=== PATIENT | female | born 1970 | race Caucasian/White ===

== ENCOUNTER 2023-02-22 06:16 | Day surgery (SDC) | payer OTHER ==
[2023-02-17 12:35] VITALS: BMI 59.3
--- NOTE | 2023-02-21 19:39 | P.HPOB ---
History of Present Illness H&P Date: 02/21/23 Chief Complaint: Endometrial thickening This is a 52 y.o. female, 0 who presents for dilatation and curettage with hysteroscopy due to thickened endometrium. Her last menstrual period was 2018. She had a pelvic ultrasound performed for pelvic pain and endometrium m easured 10 mm. Right ovary appeared normal and left ovary was previously removed. Uterus measured 8.7 x 5 x 4.4 cm. OB Hx: G0. 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 Review of Systems Constitutional: Denies chills, Denies fever Eyes: denies blurred vision, denies pain Ears, nose, mouth and throat: Denies headache, Denies sore throat Cardiovascular: Denies chest pain, Denies shortness of breath Respiratory: Denies cough Gastrointestinal: Reports heartburn, Denies abdominal pain, Denies diarrhea, Denies nausea, Denies vomiting Genitourinary: Denies dysuria, Denies hematuria Menstruation: Reports amenorrhea, Reports postmenopausal Musculoskeletal: bilateral: ankle swelling Integumentary: Denies pruritus, Denies rash Neurological: Reports numbness (feet & legs) Psychiatric: Reports irritability, Denies anxiety, Denies depression Past Medical History Past Medical History: Diabetes Mellitus, GERD/Reflux, Hyperlipidemia, Hypertension, Thyroid Disorder Additional Past Medical History / Comment(s): HEART MURMUR. BLE EDEMA. THICKENED UTERINE LINING History of Any Multi-Drug Resistant Organisms: None Reported Past Surgical History: Bariatric Surgery, Cholecystectomy Additional Past Surgical History / Comment(s): GASTRIC BYPASS. Laparoscopy with left salpingooophorectomy, D&C, right ovarian cystectomy. EGD Past Anesthesia/Blood Transfusion Reactions: No Reported Reaction Past Psychological History: No Psychological Hx Reported Smoking Status: Current some day smoker Past Alcohol Use History: Rare Past Drug Use History: None Reported - Past Family History Mother Family Medical History: Cancer Medications and Allergies Home Medications Medication Instructions Recorded Confirmed Type Acetaminophen/Diphenhydramine 2 each PO HS 02/17/23 02/22/23 History [Tylenol Pm Ex-Strength Caplet] Aspirin EC [Ecotrin Low Dose] 81 mg PO DAILY 02/17/23 02/22/23 History Atorvastatin [Lipitor] 80 mg PO DAILY 02/17/23 02/22/23 History Baclofen 10 mg PO HS 02/17/23 02/22/23 History Dulaglutide [Trulicity] 4.5 mg SQ SA 02/17/23 02/22/23 History INSULIN LISPRO (humaLOG) [humaLOG] 12 units SQ TID-W/MEALS 02/17/23 02/22/23 History Insulin Degludec [Tresiba] 45 units SQ DAILY 02/17/23 02/22/23 History Levothyroxine Sodium [Synthroid] 50 mcg PO DAILY 02/17/23 02/22/23 History Levothyroxine Sodium [Synthroid] 200 mcg PO DAILY 02/17/23 02/22/23 History Ligaplex 1 tab PO DAILY 02/17/23 02/22/23 History Losartan Potassium 100 mg PO DAILY 02/17/23 02/22/23 History Magnesium Oxide [Mag-Ox] 400 mg PO DAILY 02/17/23 02/22/23 History Pantoprazole [Protonix] 40 mg PO DAILY 02/17/23 02/22/23 History Phentermine HCl 37.5 mg PO AC-BRKFST 02/17/23 02/22/23 History Sucralfate [Carafate] 1 gm PO TID 02/17/23 02/22/23 History hydroCHLOROthiazide 12.5 mg PO DAILY 02/17/23 02/22/23 History sitaGLIPtin PHOS/metFORMIN HCL 1 tab PO DAILY 02/17/23 02/22/23 History [Janumet Xr 100-1,000 mg Tablet] Allergies Allergy/AdvReac Type Severity Reaction Status Date / Time Penicillins Allergy Swelling Verified 02/22/23 07:11 Sulfa (Sulfonamide Allergy Swelling Verified 02/22/23 07:11 Antibiotics) Exam Osteopathic Statement: *. No significant issues noted on an osteopathic structural exam other than those noted in the History and Physical/Consult. Gen: Obese female in no acute distress HEENT: within normal limits Heart: regular rate and rhythm Lungs: clear to auscultation bilaterally Abdomen: soft, non-tender Pelvic: uterus sl. enlarged, non-tender, left adnexa mildly tender, no adnexal masses or tenderness Extremites: mild edema Assessment and Plan (1) Endometrial thickening on ultrasound Current Visit: No Status: Acute Code(s): R93.89 - ABNORMAL FINDINGS ON DX IMAGING OF OTH BODY STRUCTURES SNOMED Code(s): 132174960 Plan: Proceed with dilatation and curettage with hysteroscopy. I have discussed the risks, benefits, and alternative therapies for the above- mentioned procedure and for both sedation/anesthesia as well as necessary blood products administration, if indicated, as they pertain to this patient. The patient has indicated her understanding and acceptance of the risks and procedures discussed.
[~2023-02-22 06:16] MED LIST: Pre Op ABX Message 1 EACH MISC MISCELLANE ONE
[2023-02-22] MEDS ORDERED: LIDOCAINE 1% (10MG/ML) FOR IV START INTRADERMA PRN (06:38)
[2023-02-22] MEDS ORDERED: LACTATED RINGERS 1,000 ML IV SCH (06:38)
[2023-02-22] MEDS ORDERED: ONDANSETRON 4 MG/2 ML VIAL IVP ONE (06:38)
[2023-02-22] MEDS ORDERED: DEXAMETHASONE SOD PHOSPHATE 4 MG/ML 1 ML VIAL IV ONE (06:38)
[2023-02-22] MEDS ORDERED: LACTATED RINGERS 1,000 ML IV ONE (06:44)
[2023-02-22] MEDS ORDERED: HYDROmorphone 0.5 MG/0.5 ML SYRINGE IVP PRN (07:00)
[2023-02-22] MEDS ORDERED: MIDAZOLAM 2 MG/2 ML VIAL IV PRN (07:00)
[2023-02-22 07:01] LABS: Glucose,Whole Blood 101 mg/dL (70-110)
[2023-02-22 07:06] VITALS: RESP 16
[2023-02-22] MEDS ORDERED: LIDOCAINE 1% INJ 10MG/ML (20 ML MDV) ONE (07:25)
[2023-02-22] MEDS ORDERED: MIDAZOLAM 2 MG/2 ML VIAL ONE (07:25)
[2023-02-22] MEDS ORDERED: SUCCINYLCHOLINE CHLORIDE 200 MG/10 ML VIAL IV ONE (07:25)
[2023-02-22] MEDS ORDERED: PROPOFOL 10 MG/ML 20 ML VIAL IV ONE (07:25)
[2023-02-22] MEDS ORDERED: fentaNYL (PF) 50 MCG/ML 2 ML AMP ONE (07:25)
--- NOTE | 2023-02-22 08:09 | P.OP ---
Date of Procedure: 02/22/23 Preoperative Diagnosis: Endometrial thickening on ultrasound Postoperative Diagnosis: Same Procedure(s) Performed: Dilation and curettage with hysteroscopy Anesthesia: ANISHA Surgeon: Ivana Johnson Estimated Blood Loss (ml): 10 Pathology: other (Endometrial curettings) Condition: stable Disposition: same day Indications for Procedure: This is a 52 y.o. female, 0 who presents for dilatation and curettage with hysteroscopy due to thickened endometrium. Her last menstrual period was 2018. She had a pelvic ultrasound performed for pelvic pain and endometrium measured 10 mm. Right ovary appeared normal and left ovary was previously removed. Uterus measured 8.7 x 5 x 4.4 cm. Operative Findings: Uterus is sounded to 8-1/2 cm. Upon hysteroscopy, dyssynchronous endometrial pattern is noted. No specific polyps or fibroids are visualized. Neither tubal ostia are completely visualized. Uterus is anteverted with no adnexal masses palpated Description of Procedure: The patient is taken the operative room and she is placed in the dorsal lithotomy position. She is prepped and draped in the normal sterile fashion. Her bladder is drained with a catheter. Examination is performed under anesthesia. Uterus is found to be anteverted with no adnexal masses palpated. Next a weighted speculum was placed in the patient's vagina and she is placed in slight Trendelenburg position. A right angle retractor was used to visualize the cervix and the anterior lip of the cervix was grasped with a Allis clamp. The cervix is slightly dilated with a Umaña dilator and then uterus is sounded to 8-1/2 cm. Cervix is then gently dilated with Umaña dilators until a hysteroscope could be passed. Hysteroscopy is performed using saline. A relatively dyssynchronous endometrial pattern was noted. See the above-noted findings. A polyp forceps was introduced with minimal tissue obtained. Next a medium-size sharp curet was introduced and sharp curettage was performed until a gritty texture was noted. A minimal amount of tissue is obtained. Next the specimen is removed from the field. The Allis clamp was removed from the anterior lip of the cervix. No active bleeding is noted. All instruments are removed from the vagina. All sponge counts are correct. The patient is then taken to recovery room in stable condition
[2023-02-22 08:45] VITALS: TEMP 97
[2023-02-22 10:00] VITALS: BP 137/80; PULSE 72
== END 2023-02-22 10:16 | disposition home or self-care (01) ==
LOC: OR 06:16
PROVIDERS: ATTEND Obstetrics & Gynecology
DX: N84.0 Polyp of corpus uteri (principal); E11.9 Type 2 diabetes mellitus without complications; K21.9 Gastro-esophageal reflux disease without esophagitis; I10 Essential (primary) hypertension; E78.5 Hyperlipidemia, unspecified; E07.9 Disorder of thyroid, unspecified; F10.90 Alcohol use, unspecified, uncomplicated; F17.210 Nicotine dependence, cigarettes, uncomplicated; G47.33 Obstructive sleep apnea (adult) (pediatric); E66.01 Morbid (severe) obesity due to excess calories; Z90.49 Acquired absence of other specified parts of digestive tract; Z98.84 Bariatric surgery status; Z98.890 Other specified postprocedural states; Z90.721 Acquired absence of ovaries, unilateral; Z80.9 Family history of malignant neoplasm, unspecified; Z79.82 Long term (current) use of aspirin; Z79.4 Long term (current) use of insulin; Z79.890 Hormone replacement therapy; Z79.84 Long term (current) use of oral hypoglycemic drugs; Z79.899 Other long term (current) drug therapy; Z88.0 Allergy status to penicillin; Z88.2 Allergy status to sulfonamides; Z68.44 Body mass index [BMI] 60.0-69.9, adult
CPT/HCPCS: 58558; 81025; 88305; J2250; J0330; J1100; J2405; J2001; J3010; J2704

== ENCOUNTER 2024-03-16 06:11 | Day surgery (SDC) | payer OTHER ==
[2024-03-14 09:30] VITALS: BMI 60.2
[~2024-03-16 06:11] MED LIST changes: +LACTATED RINGERS 1,000 ML IV SCH; -Pre Op ABX Message 1 EACH MISC MISCELLANE ONE
[2024-03-16 06:51] VITALS: TEMP 99
[2024-03-16 07:00] LABS: Glucose,Whole Blood 144 mg/dL (70-110)
[2024-03-16] MEDS: SODIUM CHLORIDE 0.9% 1,000 ML IV ONE (07:01)
[2024-03-16] MEDS ORDERED: MIDAZOLAM 2 MG/2 ML VIAL ONE (07:14)
[2024-03-16] MEDS ORDERED: ONDANSETRON 4 MG/2 ML VIAL ONE (07:14)
[2024-03-16] MEDS ORDERED: GLUCAGON 1 MG/ML VIAL ONE (07:14)
[2024-03-16] MEDS ORDERED: PROPOFOL 10 MG/ML 20 ML VIAL IV ONE (07:14)
--- NOTE | 2024-03-16 07:42 | P.PCN ---
Date of Procedure: 03/16/24 Procedure(s) Performed: Brief history: Patient is a pleasant 53-year-old white female scheduled for an elective upper endoscopy as well as colonoscopy as a part of evaluation of GERD and screening for colon cancer Procedure performed: Esophagogastroduodenoscopy Colonoscopy Preoperative diagnosis: GERD Screening for colon cancer Anesthesia: MAC Procedure: After informed consent was obtained from the patient was brought into the endoscopy unit and IV sedation was administered by anesthesia under continuous monitoring. Initially upper endoscopy was done. The Olympus GF 160 video endoscope was inserted inserted into the mouth and esophagus intubated without any difficulty and was gradually advanced into the the gastric pouch and there was evidence of gastric bypass surgery with Roberto-en-Y anastomosis that appeared normal. The afferent and efferent loop appeared normal. The scope was withdra wn to the gastric pouch that appeared normal. The scope was then withdrawn into the esophagus. The GE junction was located at 40 cm to the incisors. It appeared regular with no erythema erosions or ulcerations. Rest of the esophagus appeared normal. Patient tolerated the procedure well. At this time the patient continued to remain sedation. Initial digital rectal examination was normal. Olympus CF 160 video colonoscope was then inserted into the rectum and gradually advanced to the cecum without any difficulty. Careful examination was performed as the scope was gradually being withdrawn. The prep was excellent. The cecum, ascending colon, transverse colon, descending colon, sigmoid colon and rectum appeared normal. Retroflexion was performed in the rectum and no lesions were noted. Patient tolerated the procedure well. Impression: 1. Upper endoscopy revealed moderate size hiatal hernia, LA grade B reflux esophagitis and evidence of previous gastric bypass surgery with normal Roberto-en-Y anastomosis 2. Colonoscopy was within normal limits with no evidence of colorectal neoplasia Recommendations: Findings of this examination were discussed with the patient as well as her family. She was advised to increase the to 40 mg twice daily and use Pepcid dinnertime and follow antireflux measures. Recommend a repeat screening colonoscopy in 10 years.
[2024-03-16 07:55] VITALS: PULSE 78
[2024-03-16 08:07] VITALS: BP 121/81; RESP 18
== END 2024-03-16 08:22 | disposition home or self-care (01) ==
LOC: ORWHC2ENDO 06:11
PROVIDERS: ATTEND Internal Medicine Gastroenterology
DX: Z12.11 Encounter for screening for malignant neoplasm of colon (principal); K44.9 Diaphragmatic hernia without obstruction or gangrene; K21.00 Gastro-esophageal reflux disease with esophagitis, without bleeding; Z98.84 Bariatric surgery status; I10 Essential (primary) hypertension; E78.5 Hyperlipidemia, unspecified; E11.9 Type 2 diabetes mellitus without complications; G47.33 Obstructive sleep apnea (adult) (pediatric); E07.9 Disorder of thyroid, unspecified; E66.01 Morbid (severe) obesity due to excess calories; Z79.84 Long term (current) use of oral hypoglycemic drugs; Z79.890 Hormone replacement therapy; Z79.899 Other long term (current) drug therapy; Z79.4 Long term (current) use of insulin; Z98.890 Other specified postprocedural states; Z90.49 Acquired absence of other specified parts of digestive tract; Z88.2 Allergy status to sulfonamides; Z88.0 Allergy status to penicillin
CPT/HCPCS: 45378; 43235; J2250; J1610; J2405; J2704

== ENCOUNTER → 2024-10-02 | Outpatient (CLI) | payer OTHER ==
[2024-10-02 16:44] LABS: African American GFR (CKD) >90 (>60 ml/min/1.73 sqM); Blood Urea Nitrogen 22 mg/dL (7-17); Non-African American GFR(CKD) >90 (>60 ml/min/1.73 sqM)
--- NOTE | 2024-10-02 18:18 | CT ---
EXAMINATION TYPE: CT noncontrast chest abdomen pelvis. CT angio thor/abd DATE OF EXAM: 10/02/2024 5:34 PM COMPARISON: None. CLINICAL INDICATION: Female, 53 years old with history of R91.1 SOLITARY PULMONARY NODULE, I71.21; PH H, Aneurysm of ascending aorta w/o rupture TECHNIQUE: Noncontrast CT chest abdomen pelvis followed by CT angiogram chest abdomen pelvis. Multiple axial CT images of the chest, abdomen, and pelvis were obtained prior to and after the administration of IV co ntrast. 3-D reformats and maximum intensity projection format were performed on a separate workstatio n. . Contrast used:100ml mL of Isovue 370 with IV Contrast, Oral contrast used: CT DLP: 1975 mGycm, Automated exposure control for dose reduction was used. FINDINGS: ARTERIAL VASCULATURE: Ascending thoracic aorta and descending thoracic aorta are within normal limits for size. Ascending thoracic aorta measures up to 3.7 cm which is within normal limits. There is no evidence for intramural hematoma within the aorta on noncontrast imaging. Postcontrast imaging demons trates no evidence for dissection. The major vessels of the aortic arch are patent. The major vessels of the abdominal aorta are patent. PULMONARY ARTERIAL VASCULATURE: Normal caliber. No evidence of filling defect to suggest pulmonary em bolus. VENOUS SYSTEM: Unremarkable. LUNGS/ PLEURA: No focal consolidation, pneumothorax or pleural effusion. Left lower lobe 4 mm pulmona ry nodule series 6 image 70. AIRWAY: Patent and unremarkable. HEART: Size within normal limits. Moderate to severe coronary artery calcifications present. MEDIASTINUM: No gross evidence of adenopathy. MUSCULOSKELETAL: No acute osseous abnormalities SOFT TISSUES/LYMPH NODES: Unremarkable. LOWER NECK: No significant findings. Abdomen: Postsurgical changes to the gastric lumen and the gastroesophageal junction. No evidence for bowel obstruction. The kidneys are without evidence for solid mass. The adrenal glands are unremarka ble. Spleen is unremarkable. Pancreas unremarkable. Liver grossly unremarkable. The gallbladder surgi kori absent. Moderate hiatal hernia. IMPRESSION: 1. No evidence for aortic dissection, aneurysm or occlusion. Ascending thoracic aorta measuring up t o 3.7 cm 2. moderate 2 severe coronary artery atherosclerosis. 3. Surgical changes to gastroesophageal junction with moderate hiatal hernia 4. Coronary cystectomy changes. 5. Left lower lobe 4 mm pulmonary nodule. Pulmonary nodules measuring less than 6 mm. Incidentally d etected nodules of this size are generally considered benign in individuals without concomitant risk factors such as smoking history or other risk factors for malignancy. Followup imaging is generally n ot performed, in accordance with Fleischner Society guidelines. In high-risk patients, a [address] thorax can be considered. [facility], , 10/02/2024 6:16 PM
== END | disposition home or self-care (01) ==
LOC: RADCTMAIN 15:55
PROVIDERS: ATTEND Internal Medicine
DX: I71.21 Aneurysm of the ascending aorta, without rupture (principal); I25.10 Atherosclerotic heart disease of native coronary artery without angina pectoris; R91.1 Solitary pulmonary nodule; K44.9 Diaphragmatic hernia without obstruction or gangrene
CPT/HCPCS: 82565; 84520; 71275; 74175; 36415; Q9967